=== PATIENT | female | born 1955 | race African-American/Black ===

== ENCOUNTER 2021-08-11 12:43 | Outpatient (RCR) | payer MEDICARE, OTHER, SELFPAY | END 2021-08-24 09:17 | disposition home or self-care (01) | LOC: HO.WCC 12:43 | PROVIDERS: Visit Provider Physician Assistant | DX: L97.821 Non-pressure chronic ulcer of other part of left lower leg limited to breakdown of skin (principal); L97.811 Non-pressure chronic ulcer of other part of right lower leg limited to breakdown of skin; I87.2 Venous insufficiency (chronic) (peripheral) | CPT/HCPCS: 29580; 99214 ==

== ENCOUNTER 2023-04-06 19:05 | Emergency (ER) | payer MEDICARE, OTHER, SELFPAY ==
[2023-04-06 19:11] VITALS: BP 136/93; PULSE 94; RESP 16; TEMP 36.8; O2SAT 100; BMI 33.3
--- NOTE | 2023-04-06 19:12 | ED.WOUNDLAC ---
HPI - Wound/Laceration General Chief Complaint: General Medical Stated Complaint: Infection (?) open wound left thigh Time Seen by Provider: 04/07/23 00:54 Source: patient Mode of arrival: ambulatory Limitations: no limitations History of Present Illness HPI narrative: 68 yo female with past medical history of venous insufficiency here with complaints of left thigh swelling/pain, drainage from wound site, fevers, chills, vomiting. Had a vein procedure ([facility] in [facility]) on left leg 3 weeks ago. She states that 3 or 4 days prior she was walking her house without her cane. She states she was holding onto the vidal help her with her balance, she lost her balance and the handle of addressed struck her on the left thigh in the area where she had had a procedural incision. She states that since the injury, the wound has been draining watery, yellow fluid which has a foul odor to it. She states that she has had fever, chills, headache, nausea. She is concerned that the wounds infected, therefore she came to emergency department. The patient states she has lymphedema to her lower extremities and she wraps her extremities with paper towels in a stocking to help with the fluid drainage that she has chronically. Related Data Previous Rx's Medication Instructions Recorded doxycycline hyclate 100 mg tablet 100 mg PO Q12H 7 days #14 tabs 04/07/23 Allergies Allergy/AdvReac Type Severity Reaction Status Date / Time erythromycin base Allergy Mild Rash Verified 04/06/23 19:18 NSAIDS (Non-Steroidal Allergy Mild Facial Verified 04/06/23 19:18 Anti-Inflamma Swelling Penicillins Allergy Mild Rash Verified 04/06/23 19:18 Review of Systems Review of Systems: Yes all other systems are reviewed and are negative [facility] Past Medical History [facility] Narrative: Past medical history: Lymphedema Social History Social History Advance Directives: No Advance Directives Information Provided: Yes Physical Exam Vital Signs: Vital Signs: Last Vital Signs Temp 98.5 F 04/07/23 00:31 Pulse 104 H 04/07/23 00:31 Resp 17 04/07/23 00:31 BP 124/68 04/07/23 00:31 Pulse Ox 97 04/07/23 00:31 O2 Del Method Room Air 04/07/23 00:31 BMI result Body Mass Index 33.3 Vital signs were normal Exam: General: Awake, alert in no distress Head: Normocephalic, atraumatic EENT: PERRL, Lids normal, sclera normal, conjunctiva normal, nose normal , ears normal, throat without erythema or exudates Neck: Supple, no adenopathy, trachea midline and nontender Lung: breath sounds symmetric, no wheezing, rales or rhonchi Chest: symmetric movement, nontender Heart: regular rate and rhythm, normal S1, S2 no murmurs or rubs Abdomen: Obese, soft, non-tender, nondistended, normal bowel sounds Extremities: Patient's legs bilaterally are very large but symmetric, the lower extremities from the knee to the foot are wrapped with paper towels covered with a stocking to moves orbital lymphedema. On her left lateral thigh there is 3 x 2 cm wound which has granulation tissue and is draining yellow fluid, drainage does not appear purulent. There is increased warmth and erythema surrounding the wound. Skin: no rashes, no lesion, normal color and warmth Psych: Pleasant, cooperative Course Course Course Narrative: This is a rapid medical exam. Deferred additional HPI, ROS, PE to primary provider. 68 yo female with past medical history of venous insufficiency here with complaints of left thigh swelling/pain, drainage from wound site, fevers, chills, vomiting. Had a vein procedure ([facility] in [facility]) on left leg 3 weeks ago. Will obtain labs including blood cultures, lactic acid, covid screen VSS Medical Decision Making Medical Decision Making MDM Narrative: 68-year-old female with a history of venous insufficiency and lymphedema of trigger lower extremities who had a venous procedure 3 weeks prior and [place], who injured her left inner thigh 3 days prior and is now complaining of subjective fever, chills, nausea vomiting, and purulent drainage from the surgical site. Examination did reveal a left inner thigh skin ulcer with granulation tissue with serous drainage which does not appear purulent. Patient does have some increased warmth and erythema around the wound. Patient had a laboratory evaluation which included a CBC, CMP, PT INR and COVID-19. 00:16 Patient's laboratory evaluation was unremarkable. The patient does have increased warmth and erythema around the skin altered therefore she will be treated for cellulitis with doxycycline 100 mg q.12 hours x7 days. She was given her 1st dose here in the emergency department. Her wound was dressed with bacitracin and a bulky dressing covered with a Brandan wrap. Patient was advised to follow-up with our wound care clinic for re-evaluation. Differential Diagnosis Differential Diagnoses: The differential diagnosis associated with the presentation includes Differential diagnosis includes was not limited to skin ulcer, cellulitis Lab Data MDM Lab Attestation statement: I reviewed the patient's lab results. My interpretation patient's laboratory evaluation is as follows: WBC was normal. Normocytic anemia with an H&H of 9.9 and 31.6-no old values for comparison. PT/INR were normal. CMP was normal. CK was elevated 155. COVID-19 was negative. 04/06/23 19:51 04/06/23 19:51 Labs: Lab Results 04/06/23 04/06/23 04/06/23 Range/Units 19:50 19:51 21:00 WBC 6.7 (4.8-10.8) X10*3/uL RBC 3.48 L (4.20-5.50) X10*6/uL Hgb 9.9 L (12.0-16.0) g/dl Hct 31.6 L (37.0-47.0) % MCV 90.8 (80.0-98.0) fL MCH 28.4 (27.0-33.0) pg MCHC 31.3 (31.0-35.0) g/dl RDW 15.9 (11.0-16.0) % Plt Count 392 (160-400) X10*3/uL MPV 9.3 L (9.4-12.3) fL Immature Gran % (Auto) 0.7 H (0.0-0.4) % Neut % (Auto) 77.6 H (45-73) % Lymph % (Auto) 14.7 L (20-40) % [place] % (Auto) 5.1 (2-11) % Eos % (Auto) 1.5 (0-4) % Baso % (Auto) 0.4 (0-2) % Lymph # (Auto) 1.0 L (1.2-4.9) X10*3/uL [place] # (Auto) 0.3 (0.1-1.2) X10*3/uL Eos # (Auto) 0.1 (0.0-0.4) X10*3/uL Baso # (Auto) 0.0 (0.0-0.2) X10*3/uL Abs Immat Gran (auto) 0.05 H (0.00-0.03) X10*3/uL Absolute Neuts (auto) 5.2 (2.0-8.3) x10*3/uL Absolute Nucleated RBC 0.000 (0.0-0.012) X10*3/uL Nucleated RBC % (auto) 0.0 (0.0-0.2) /100WBC PT 11.9 (11.1-13.3) SEC INR 1.0 (0.9-1.1) Sodium 138 (135-145) mmol/L Potassium 4.3 (3.3-5.1) mmol/L Chloride 105 (96-108) mmol/L Carbon Dioxide 22 (22-29) mmol/L Anion Gap 15 (12-20) BUN 7 L (9-16) mg/dL Creatinine 0.94 (0.5-1.4) mg/dL Estim Creat Clear Calc 66.0 Estimated GFR 59 Random Glucose 89 (60-115) mg/dL Lactic Acid 0.9 (0.5-2.0) mmol/L Calcium 9.7 (8.4-10.2) mg/dL Total Bilirubin 0.3 (0.0-1.0) mg/dL Direct Bilirubin 0.1 (0.0-0.5) mg/dL AST 23 (5-31) U/L ALT 8 (0-31) U/L Alkaline Phosphatase 71 (39-117) U/L Total Creatine Kinase 155 H (26-140) U/L Total Protein 9.5 H (6.5-8.0) g/dL Albumin 3.2 L (3.5-5.0) g/dL COVID-19 ([facility]) Negative (Negative) COVID-19 Clin Com See Note Discharge Plan Discharge Clinical Impression: Ulcer of left lower extremity, limited to breakdown of skin, Cellulitis of left lower leg Patient Disposition: Home, Self-Care Instructions: Cellulitis (ED) Additional Instructions: Your blood work was normal. Your COVID-19 test was negative. You have a skin ulcer to your left inner thigh which may be infected. Apply bacitracin twice a day for 1 week. Take doxycycline 100 mg every 12 hours for 7 days Follow-up with our wound care clinic for re-evaluation. Prescriptions: New doxycycline hyclate 100 mg tablet 100 mg PO Q12H 7 Days Qty: 14 0RF Referrals: [facility] [place] [facility] [Outside] - 1 week (Left inner thigh skin ulcer with cellulitis)
[2023-04-06 19:56] LABS: MANUAL DIFF FLAG NO
[2023-04-06 20:03] LABS: Basophils Percent Auto 0.4 % (0-2); Eosinophils Absolute Auto 0.1 X10*3/uL (0.0-0.4); Eosinophils Percent Auto 1.5 % (0-4); Hematocrit 31.6 % (37.0-47.0); Hemoglobin 9.9 g/dl (12.0-16.0); Imm Gran Abs Auto 0.05 X10*3/uL (0.00-0.03); Imm Gran Pct Auto 0.7 % (0.0-0.4); Lymphocytes Percent Auto 14.7 % (20-40); Mean Corpuscular HGB Conc 31.3 g/dl (31.0-35.0); Mean Corpuscular Hemoglobin 28.4 pg (27.0-33.0); Mean Corpuscular Volume 90.8 fL (80.0-98.0); Mean Platelet Volume 9.3 fL (9.4-12.3); Monocytes Absolute Auto 0.3 X10*3/uL (0.1-1.2); Monocytes Percent Auto 5.1 % (2-11); Neutrophils Absolute Auto 5.2 x10*3/uL (2.0-8.3); Neutrophils Percent Auto 77.6 % (45-73); Platelet Count 392 X10*3/uL (160-400); Red Blood Count 3.48 X10*6/uL (4.20-5.50); Red Cell Distribution Width 15.9 % (11.0-16.0); White Blood Count 6.7 X10*3/uL (4.8-10.8)
[2023-04-06 20:07] LABS: Lactic Acid 0.9 mmol/L (0.5-2.0)
[2023-04-06 20:12] LABS: Alanine Aminotransferase 8 U/L (0-31); Albumin Level 3.2 g/dL (3.5-5.0); Alkaline Phosphatase 71 U/L (39-117); Anion Gap 15 (12-20); Aspartate Amino Transferase 23 U/L (5-31); Bilirubin Direct 0.1 mg/dL (0.0-0.5); Bilirubin Total 0.3 mg/dL (0.0-1.0); Blood Urea Nitrogen 7 mg/dL (9-16); Calcium 9.7 mg/dL (8.4-10.2); Carbon Dioxide 22 mmol/L (22-29); Chloride 105 mmol/L (96-108); Estimated Glomerular Filt Rate 59; Glucose Random 89 mg/dL (60-115); Potassium 4.3 mmol/L (3.3-5.1); Sodium 138 mmol/L (135-145); Total Protein 9.5 g/dL (6.5-8.0)
[2023-04-06 20:15] LABS: COVID-19 Test Negative (Negative); IDNOW Serial# BCCEAD1C
[2023-04-06 21:20] LABS: Prothrombin Time 11.9 SEC (11.1-13.3)
[2023-04-07 00:31] VITALS: BP 124/68; PULSE 104; RESP 17; TEMP 36.9; O2SAT 97
[2023-04-07] MEDS: Doxycycline Monohydrate 100 MG CAPSULE PO (02:10)
[2023-04-07] MEDS: Bacitracin Oint 0.9 GM PACKET 1 APPL TOPICAL (02:10)
== END 2023-04-07 02:21 | disposition home or self-care (01) ==
PROVIDERS: Nurse Practitioner Family; Emergency Provider Emergency Medicine Emergency Medical Services; PCP Physician Assistant
DX: L97.921 Non-pressure chronic ulcer of unspecified part of left lower leg limited to breakdown of skin (principal); L03.116 Cellulitis of left lower limb; R11.2 Nausea with vomiting, unspecified; R50.9 Fever, unspecified; Z11.52 Encounter for screening for COVID-19; Z20.822 Contact with and (suspected) exposure to COVID-19; Z79.899 Other long term (current) drug therapy
CPT/HCPCS: 36415; 80048; 80076; 82550; 83605; 85025; 85610; 87040; 87635; 99283